=== PATIENT | male | born 1950 | race Two or more races ===

== ENCOUNTER 2024-03-14 06:47 | Day surgery (SDC) | payer OTHER ==
[2024-03-14] MEDS ORDERED: DIPHENHYDRAMINE HCL 50 MG/ML VIAL 1ML IV ONE (08:15)
[2024-03-14] MEDS ORDERED: fentaNYL CITRATE 50 MCG/ML AMPUL IV ONE (08:15)
[2024-03-14] MEDS ORDERED: MIDAZOLAM HCL 2 MG/2 ML VIAL IV ONE (08:15)
== END 2024-03-14 11:00 | disposition home or self-care (01) ==
LOC: AMB-ENDOS 06:47
PROVIDERS: ATTEND Surgery
DX: K63.5 Polyp of colon (principal); K57.30 Diverticulosis of large intestine without perforation or abscess without bleeding